=== PATIENT | male | born 1985 | race Caucasian/White ===

== ENCOUNTER 2019-03-30 12:38 | Emergency (ER) | payer MEDICAID | END 2019-03-30 13:01 | disposition left against medical advice (07) | LOC: D.ER 12:38 | DX: R07.9 Chest pain, unspecified (principal) ==

== ENCOUNTER 2019-08-04 15:39 | Emergency (ER) | payer MEDICAID ==
[~2019-08-04] VITALS: Ht 177.8 cm; Wt 235.5 kg
[2019-08-04 15:48] VITALS: Ht 177.8 cm; Wt 235.5 kg
--- NOTE | 2019-08-04 16:11 | NUR ---
PT HAS POOR EYE CONTACT AND DOES NOT ANSWER ASSESSMENT QUESTIONS. PT DOES MAKE STATEMENTS OF "I SHOULD HAVE JUST KILLED MYSELF. I SHOULDN'T HAVE TOLD ANYONE." ATTEMPTED TO DO COPING SKILLS AND GET PT TO TALK TO ME. ALL ATTEMPTS WERE UNSUCCESSFUL. ATTENDING AND NURSE NOTIFED. SITTER ORDERED PER DR. NAVAS. PT SEEMS TO BE A HIGH RISK FOR SUICIDE. SAFETY PLAN INITIATED.
[2019-08-04 16:45] LABS: BASOPHILS 0.1 % (0-2); EOSINOPHILS 0.1 % (0-7); HEMATOCRIT 43.3 % (42.0-54.0); HEMOGLOBIN 14.9 g/dL (13.5-17.5); IMMATURE GRANULOCYTES 0.2 % (0-5); MCH 30.9 pg (26.0-34.0); MCHC 34.4 g/dL (31.0-37.0); MCV 89.8 fL (80.0-100.0); MEAN PLATELET VOLUME 10.1 fL (7.4-10.4); NEUTROPHILS 69.6 % (40-80); PLATELET COUNT 215 10x3/uL (130-400); RBC 4.82 10x6/uL (4.20-6.10); RDW 12.7 % (11.5-14.5); WBC 8.2 10x3/uL (4.8-10.8)
[2019-08-04 17:01] LABS: CALC OSMOLALITY 280 mosm/kg (275-300); CARBON DIOXIDE 24.8 mmol/L (21.0-32.0); CHLORIDE - SERUM 105 mmol/L (98-107); CREATININE - SERUM 0.9 mg/dL (0.6-1.3); GLUCOSE 172 mg/dL (74-106); POTASSIUM - SERUM 3.5 mmol/L (3.5-5.1); SODIUM 139 mmol/L (136-145); UREA NITROGEN 9 mg/dL (7-18); eGFR NON AFRICAN AMERICAN > 90 mL/min (90-120)
[2019-08-04 17:15] LABS: ALBUMIN 3.5 g/dL (3.4-5.0); ALKALINE PHOSPHATASE 59 U/L (30-120); ALT (SGPT) 54 U/L (10-68); MAGNESIUM - SERUM 1.8 mg/dL (1.8-2.4); PROTEIN - SERUM 7.7 g/dL (6.4-8.2)
[2019-08-04 18:40] LABS: UDS - AMPHET NEGATIVE QUAL (NEGATIVE); UDS - BARB NEGATIVE QUAL (NEGATIVE); UDS - BENZO NEGATIVE QUAL (NEGATIVE); UDS - COCAINE NEGATIVE QUAL (NEGATIVE); UDS - OPIATE NEGATIVE QUAL (NEGATIVE); UDS - PCP NEGATIVE QUAL (NEGATIVE); UDS - THC NEGATIVE QUAL (NEGATIVE)
[2019-08-04 18:51] LABS: BILIRUBIN NEGATIVE (NEGATIVE); GLUCOSE NEGATIVE (NEGATIVE); KETONE NEGATIVE (NEGATIVE); NITRITE NEGATIVE (NEGATIVE); UROBILINOGEN NORMAL (NORMAL)
[2019-08-05 09:47] VITALS: BP 162/94
== END 2019-08-05 09:48 ==
LOC: D.ER 15:39
PROVIDERS: Emergency Medicine
DX: R45.851 Suicidal ideations (principal)

== ENCOUNTER 2019-09-27 10:47 | Emergency (ER) | payer MEDICAID ==
[~2019-09-27] VITALS: Ht 177.8 cm; Wt 235.5 kg
[2019-09-27 10:51] VITALS: Ht 177.8 cm; Wt 235.5 kg
[2019-09-27 12:00] VITALS: BP 124/78
== END 2019-09-27 12:00 | disposition home or self-care (01) ==
LOC: D.ER 10:47
DX: M79.641 Pain in right hand (principal); S62.306A Unspecified fracture of fifth metacarpal bone, right hand, initial encounter for closed fracture; Y04.2XXA Assault by strike against or bumped into by another person, initial encounter; Y93.9 Activity, unspecified; Y92.9 Unspecified place or not applicable

== ENCOUNTER 2020-09-25 10:45 | Emergency (ER) | payer MEDICAID ==
[~2020-09-25] VITALS: Ht 180.3 cm; Wt 227.3 kg
[2020-09-25 10:52] VITALS: BP 178/104; Ht 180.3 cm; Wt 227.3 kg
[2020-09-25] MEDS ORDERED: VOLTAREN75 MG PO (11:26)
== END 2020-09-25 12:02 | disposition home or self-care (01) ==
LOC: D.ER 10:45
DX: M54.5 Low back pain (principal); M62.838 Other muscle spasm; E11.9 Type 2 diabetes mellitus without complications; I10 Essential (primary) hypertension; Z72.0 Tobacco use